=== PATIENT | male | born 1975 | race Caucasian/White ===

== ENCOUNTER → 2023-02-09 | Outpatient (CLI) | payer SELFPAY ==
--- NOTE | 2023-02-09 10:54 | Diagnostic Imaging Report ---
INDICATION: Elevated cholesterol. TECHNIQUE: CT cardiac calcium scoring study performed with noncontrast images of the heart followed by calculation of cardiac score. Dose reduction protocol was used. FINDINGS: Raw data images demonstrated the aorta to be normal in caliber. There is no mediastinal adenopathy. Visualized portions of the lung george are clear, the entirety of the lungs are not included on the study. There is no pleural fluid. There are minimal areas of coronary calcification. There is a small plaque in the proximal LAD with score of 1.2. There is a small plaque in the proximal RCA, with score of 0.4. Total cardiac calcium score was 1.7. IMPRESSION: Cardiac calcium score was 1.7 for minimal plaques in the proximal RCA and LAD. Findings are compatible with overall minimal plaque burden. Dictated by: Dictated on workstation # [id number]
== END ==
LOC: RAD 09:48
PROVIDERS: ATTEND Nurse Practitioner Family
DX: E78.00 Pure hypercholesterolemia, unspecified (principal)
CPT/HCPCS: 75571